=== PATIENT | male | born 1930 | race Caucasian/White ===

== ENCOUNTER 2017-08-05 13:04 | Inpatient (IN) ==
[2017-08-05 14:23] LABS: Basophils % 0.5 % (0.0-0.8); Eosinophils # 0.2 10*3/uL (0.0-0.87); Eosinophils % 2.3 % (0.00-10.9); Hematocrit 41.1 VOL% (42.0-52.0); Hemoglobin 13.8 GM/DL (14.0-18.0); Immature Granulocytes % 0.3 %; Immature Granulocytes Absolute 0.03 #; Lymphocytes # 1.7 10*3/uL (1.4-4.0); Lymphocytes % 18.7 % (21.2-54.2); Mean Corpuscular HGB Conc 33.6 GM/DL (32-36); Mean Corpuscular Hemoglobin 31 PG (27-34); Mean Corpuscular Volume 91.3 FL (87-102); Mean Platelet Volume 10.9 FL (9.6-12.0); Monocytes # 0.7 10*3/uL (0.11-0.8); Monocytes % 7.4 % (1.7-12.7); Neutrophils # 6.2 10*3/uL (1.4-7.4); Neutrophils % 70.8 % (38.7-73.9); Platelet Count 134 T/CUMM (130-400); Red Cell Distribution Width 13.1 % (9.3-17.3); White Blood Count 8.8 T/CUMM (4-12)
[2017-08-05 14:56] LABS: Albumin 3.5 G/DL (3.4-5.0); Bilirubin,Total 0.5 MG/DL (0.2-1.0); Calcium 8.8 MG/DL (8.5-10.1); Osmolality,Calculated 283.4 MOS/KG (273-304); Total Protein 7.2 G/DL (6.4-8.3)
[2017-08-05 16:27] LABS: Apearance,Urine CLEAR (Clear); Bilirubin,Urine Negative (Negative); Blood, Urine Small mg/dL (Negative); Glucose,Urine (UA) Negative (Negative); Ketones,Urine Negative (Negative); Mucus,Urine Occasional /LPF (Occasional); Nitrite,Urine Negative (Negative); Protein,Urine 30 MG/DL; RBC,Urine <1 /HPF (0-4); Urine Color Yellow (Yellow); Urine Specific Gravity 1.009 (1.001-1.035); Urine Urobilinogen < 2.0 EU/DL (0.2-1.0); WBC,Urine <1 /HPF (0-6)
[2017-08-05] MEDS ORDERED: ACETAMINOPHEN 325 MG TABLET PO PRN (18:35)
[2017-08-05] MEDS ORDERED: ONDANSETRON 4 MG/2 ML VIAL IV PRN (18:35)
[2017-08-05] MEDS: DILTIAZEM CD 180 MG CAPSULE PO SCH (20:40)
[2017-08-05] MEDS: DICYCLOMINE 10 MG CAPSULE PO SCH (20:45)
[2017-08-05] MEDS: LACTATED RINGERS 1,000 ML IV SCH (20:45)
[2017-08-05] MEDS: METOPROLOL SUCCINATE XL 100 MG TABLET PO SCH (20:45)
[2017-08-06] MEDS: LACTATED RINGERS 1,000 ML IV SCH (04:34)
[2017-08-06] MEDS ORDERED: CLINDAMYCIN INJ 900 MG in PREMIX 1 EACH IV ONE (06:00)
[2017-08-06] MEDS: DILTIAZEM CD 180 MG CAPSULE PO SCH ×2 (06:19→10:15)
[2017-08-06] MEDS: METOPROLOL SUCCINATE XL 100 MG TABLET PO SCH ×2 (06:20→10:16)
[2017-08-06] MEDS ORDERED: ceFAZolin 1,000 MG VIAL ONE (06:27)
[2017-08-06] MEDS ORDERED: BUPIVACAINE 0.25% 50 ML VIAL ONE (06:27)
[2017-08-06] MEDS ORDERED: LIDOCAINE 1%/EPI INJ 20 ML VIAL ONE (06:27)
[2017-08-06] MEDS ORDERED: LACTATED RINGERS 1,000 ML IV SCH (07:40)
[2017-08-06] MEDS ORDERED: TISSUE ADHESIVE 1 EACH APPLICATOR TOP ONE (08:06)
[2017-08-06] MEDS ORDERED: SEVOFLURANE 1 UNIT/15 MINUTE INH ONE (08:48)
[2017-08-06] MEDS ORDERED: fentaNYL 100 MCG/2 ML VIAL ONE (08:48)
[2017-08-06] MEDS ORDERED: ACETAMINOPHEN 1,000 MG/100 ML VIAL IV ONE (08:49)
[2017-08-06] MEDS ORDERED: ONDANSETRON 4 MG/2 ML VIAL ONE (08:49)
[2017-08-06] MEDS ORDERED: ETOMIDATE 20 MG/10 ML VIAL IV ONE (08:49)
[2017-08-06] MEDS ORDERED: LEFLUNOMIDE 10 MG TABLET PO SCH (09:00)
[2017-08-06] MEDS ORDERED: PANTOPRAZOLE 40 MG TABLET PO SCH (09:00)
[2017-08-06] MEDS ORDERED: TAMSULOSIN 0.4 MG CAPSULE PO SCH (09:00)
[2017-08-06] MEDS ORDERED: NON-FORMULARY MEDICATION (Esomeprazole Magnesium [Nexium] 40 MG) PO SCH (09:00)
[2017-08-06] MEDS ORDERED: ASPIRIN EC 81 MG TABLET PO SCH (09:00)
[2017-08-06] MEDS ORDERED: HYDROmorphone 2 MG/1 ML VIAL IV PRN (09:32)
[2017-08-06] MEDS: DICYCLOMINE 10 MG CAPSULE PO SCH ×3 (10:19→16:37)
[2017-08-06 16:01] VITALS: BP 119/57
== END 2017-08-06 17:07 | disposition home or self-care (01) | DRG 352 ==
LOC: EDBD → EDUNIT# → N.ED 13:04 → N.EDINP 17:13 → N.3E 18:21
PROVIDERS: ADMIT Surgery; ATTEND Surgery

== ENCOUNTER 2019-09-05 05:27 | Inpatient (IN) ==
[2019-09-05] MEDS ORDERED: CLINDAMYCIN INJ 900 MG in PREMIX 1 EACH IV ONE (06:30)
[2019-09-05] MEDS ORDERED: VANCOMYCIN INJ 1,000 MG in SODIUM CHLORIDE 0.9% 250 ML IV ONE (06:30)
[2019-09-05] MEDS ORDERED: DIAZEPAM 5 MG TABLET PO ONE (06:38)
[2019-09-05] MEDS ORDERED: ACETAMINOPHEN 500 MG TABLET PO ONE (06:38)
[2019-09-05] MEDS ORDERED: FAMOTIDINE 20 MG TABLET PO ONE (06:38)
[2019-09-05] MEDS ORDERED: GABAPENTIN 400 MG CAPSULE PO ONE (06:38)
[2019-09-05] MEDS ORDERED: VANCOMYCIN 1,000 MG VIAL ONE (06:40)
[2019-09-05] MEDS ORDERED: CLINDAMYCIN INJ 50 ML IV ONE (06:41)
[2019-09-05] MEDS ORDERED: LACTATED RINGERS 1,000 ML IV SCH (07:00)
[2019-09-05] MEDS ORDERED: TRANEXAMIC ACID 1,000 MG/10 ML VIAL ONE (07:49)
[2019-09-05] MEDS ORDERED: BUPIVACAINE SPINAL 0.75% 2 ML AMP SPINAL ONE (07:49)
[2019-09-05] MEDS ORDERED: EPINEPHrine 1 MG/ML VIAL ONE (07:49)
[2019-09-05] MEDS ORDERED: ROPIVACAINE 0.5% 30 ML VIAL ONE (07:49)
[2019-09-05] MEDS ORDERED: MAGNESIUM HYDROXIDE SUSP 30 ML UDCUP PO PRN (10:10)
[2019-09-05] MEDS ORDERED: BISACODYL 10 MG SUPP RECTAL PRN (10:10)
[2019-09-05] MEDS ORDERED: ONDANSETRON 4 MG/2 ML VIAL IV PRN (10:10)
[2019-09-05] MEDS ORDERED: TEMAZEPAM 7.5 MG CAPSULE PO PRN (10:10)
[2019-09-05] MEDS ORDERED: MORPHINE 4 MG/1 ML VIAL IV PRN ×2 (10:10→10:34)
[2019-09-05] MEDS ORDERED: PROMETHAZINE 25 MG/1 ML VIAL IM PRN (10:10)
[2019-09-05] MEDS ORDERED: diphenhydrAMINE CAP 25 MG CAPSULE PO PRN (10:10)
[2019-09-05] MEDS ORDERED: LACTULOSE 20 GM/30 ML UDCUP PO PRN (10:10)
[2019-09-05] MEDS ORDERED: Adalimumab [Humira] 40 MG SUBCUT SCH (10:15)
[2019-09-05 12:10] LABS: Apearance,Urine CLEAR (Clear); Bacteria,Urine Occasional /HPF (Few); Bilirubin,Urine Negative (Negative); Blood, Urine Negative (Negative); Glucose,Urine (UA) Negative (Negative); Hyaline Casts,Urine 3 /LPF (0-3); Ketones,Urine Negative (Negative); Mucus,Urine Occasional /LPF (Occasional); Nitrite,Urine Negative (Negative); Protein,Urine Negative; RBC,Urine <1 /HPF (0-4); Urine Color Yellow (Yellow); Urine Specific Gravity 1.013 (1.001-1.035); Urine Urobilinogen < 2.0 EU/DL (0.2-1.0); WBC,Urine <1 /HPF (0-6)
[2019-09-05] MEDS ORDERED: MIDAZOLAM 2 MG/2 ML VIAL ONE (12:22)
[2019-09-05] MEDS ORDERED: ePHEDrine 50 MG/ML AMP ONE (12:22)
[2019-09-05] MEDS ORDERED: ONDANSETRON 4 MG/2 ML VIAL ONE (12:22)
[2019-09-05] MEDS ORDERED: LACTATED RINGERS 1,000 ML IV ONE (12:22)
[2019-09-05] MEDS ORDERED: PHENYLEPHRINE 1 MG/10 ML SYRINGE IV ONE (12:22)
[2019-09-05] MEDS ORDERED: PROPOFOL 200 MG/20 ML VIAL IV ONE (12:22)
[2019-09-05] MEDS ORDERED: fentaNYL 100 MCG/2 ML VIAL ONE (12:22)
[2019-09-05] MEDS ORDERED: SODIUM CHLORIDE 0.9% 200 ML IV ONE (12:22)
[2019-09-05] MEDS ORDERED: ALBUMIN 5% 12.5 GM/250 ML VIAL IV ONE (12:38)
[2019-09-05] MEDS ORDERED: ALBUMIN 25% 25 GM in PREMIX 1 EACH IV ONE (13:00)
[2019-09-05] MEDS: CLINDAMYCIN INJ 900 MG in PREMIX 1 EACH IV SCH ×2 (15:14→23:47)
[2019-09-05] MEDS: FONDAPARINUX 2.5 MG/0.5 ML SYRINGE SUBCUT SCH (21:13)
[2019-09-05] MEDS: INSULIN LISPRO 100 UNIT/ML SUBCUT SCH (21:14)
[2019-09-05] MEDS: PANTOPRAZOLE 40 MG TABLET PO SCH (21:16)
[2019-09-05] MEDS: METOPROLOL SUCCINATE XL 100 MG TABLET PO SCH (21:16)
[2019-09-05] MEDS: DOCUSATE SODIUM 100 MG CAPSULE PO SCH (21:16)
[2019-09-06 06:17] LABS: Basophils % 0.4 % (0.0-0.8); Eosinophils # 0.2 10*3/uL (0.0-0.87); Eosinophils % 4.1 % (0.00-10.9); Hematocrit 31.4 VOL% (42.0-52.0); Immature Granulocytes % 0.2 %; Immature Granulocytes Absolute 0.01 #; Lymphocytes # 1.5 10*3/uL (1.4-4.0); Lymphocytes % 27.4 % (21.2-54.2); Mean Corpuscular HGB Conc 31.8 GM/DL (32-36); Mean Corpuscular Volume 92.6 FL (87-102); Mean Platelet Volume 11.2 FL (9.6-12.0); Monocytes % 13.8 % (1.7-12.7); Neutrophils % 54.1 % (38.7-73.9); Red Blood Count 3.39 MC/CUMM (3.8-5.5); Red Cell Distribution Width 13.8 % (9.3-17.3); White Blood Count 5.6 T/CUMM (4-12)
[2019-09-06 06:23] LABS: Platelet Count 84 T/CUMM (130-400)
[2019-09-06 06:40] LABS: Albumin 2.7 G/DL (3.4-5.0); Bilirubin,Total 0.7 MG/DL (0.2-1.0); Calcium 8.1 MG/DL (8.5-10.1); Osmolality,Calculated 279.5 MOS/KG (273-304); Total Protein 5.9 G/DL (6.4-8.3)
[2019-09-06 06:42] LABS: Risk Ratio 2.94; VLDL CHOLESTEROL 20.6 MG/DL
[2019-09-06] MEDS: LEFLUNOMIDE 10 MG TABLET PO SCH (08:01)
[2019-09-06] MEDS: PANTOPRAZOLE 40 MG TABLET PO SCH ×2 (08:02→21:29)
[2019-09-06] MEDS: METOPROLOL SUCCINATE XL 100 MG TABLET PO SCH ×2 (08:02→21:28)
[2019-09-06] MEDS: DILTIAZEM CD 180 MG CAPSULE PO SCH (08:02)
[2019-09-06] MEDS: DOCUSATE SODIUM 100 MG CAPSULE PO SCH ×2 (08:02→21:28)
[2019-09-06] MEDS: TAMSULOSIN 0.4 MG CAPSULE PO SCH (08:02)
[2019-09-06] MEDS: INSULIN LISPRO 100 UNIT/ML SUBCUT SCH ×4 (08:03→21:29)
[2019-09-06 13:22] LABS: Platelet Estimate Decreased
[2019-09-06 13:23] LABS: Anisocytosis 1+; Macrocytosis Slight
[2019-09-06] MEDS: FONDAPARINUX 2.5 MG/0.5 ML SYRINGE SUBCUT SCH (21:29)
[2019-09-07 05:49] LABS: Basophils % 0.5 % (0.0-0.8); Eosinophils # 0.4 10*3/uL (0.0-0.87); Eosinophils % 4.8 % (0.00-10.9); Hemoglobin 10.6 GM/DL (14.0-18.0); Immature Granulocytes % 0.4 %; Immature Granulocytes Absolute 0.03 #; Lymphocytes # 2.2 10*3/uL (1.4-4.0); Lymphocytes % 26.8 % (21.2-54.2); Mean Corpuscular HGB Conc 32.1 GM/DL (32-36); Mean Corpuscular Volume 92.2 FL (87-102); Mean Platelet Volume 11.7 FL (9.6-12.0); Monocytes % 16.4 % (1.7-12.7); Neutrophils % 51.1 % (38.7-73.9); Red Blood Count 3.58 MC/CUMM (3.8-5.5)
[2019-09-07 05:51] LABS: Platelet Count 84 T/CUMM (130-400); White Blood Count 8.1 T/CUMM (4-12)
[2019-09-07 06:02] LABS: Calcium 8.2 MG/DL (8.5-10.1); Osmolality,Calculated 281.4 MOS/KG (273-304)
[2019-09-07 06:22] LABS: Eosinophils 2 % (0-10); Lymphocytes 26 % (20-55); Platelet Estimate Decreased; Segmented Neutrophils 63 % (50-85); Total Cells Counted 100
[2019-09-07 06:23] LABS: Polychromasia Few
[2019-09-07] MEDS ORDERED: hydrALAZINE 20 MG/1 ML VIAL IM PRN (08:55)
[2019-09-07] MEDS: METOPROLOL SUCCINATE XL 100 MG TABLET PO SCH ×2 (09:45→20:55)
[2019-09-07] MEDS: LEFLUNOMIDE 10 MG TABLET PO SCH (09:45)
[2019-09-07] MEDS: DILTIAZEM CD 180 MG CAPSULE PO SCH (09:45)
[2019-09-07] MEDS: PANTOPRAZOLE 40 MG TABLET PO SCH ×2 (09:46→20:55)
[2019-09-07] MEDS: TAMSULOSIN 0.4 MG CAPSULE PO SCH (09:46)
[2019-09-07] MEDS: DOCUSATE SODIUM 100 MG CAPSULE PO SCH ×2 (09:46→20:55)
[2019-09-07] MEDS: POTASSIUM CHLORIDE RIDER 10 MEQ in PREMIX 1 EACH IV SCH ×2 (09:47→11:30)
[2019-09-07] MEDS: INSULIN LISPRO 100 UNIT/ML SUBCUT SCH ×4 (11:30→20:55)
[2019-09-07] MEDS: FONDAPARINUX 2.5 MG/0.5 ML SYRINGE SUBCUT SCH (20:55)
[2019-09-08 05:09] LABS: Basophils # 0.1 10*3/uL (0.0-0.2); Basophils % 0.7 % (0.0-0.8); Eosinophils # 0.6 10*3/uL (0.0-0.87); Eosinophils % 6.8 % (0.00-10.9); Hematocrit 32.8 VOL% (42.0-52.0); Hemoglobin 10.4 GM/DL (14.0-18.0); Immature Granulocytes % 0.5 %; Immature Granulocytes Absolute 0.04 #; Lymphocytes # 2.6 10*3/uL (1.4-4.0); Lymphocytes % 32.3 % (21.2-54.2); Mean Corpuscular HGB Conc 31.7 GM/DL (32-36); Mean Corpuscular Volume 92.9 FL (87-102); Mean Platelet Volume 11.5 FL (9.6-12.0); Neutrophils % 45.7 % (38.7-73.9); Platelet Count 91 T/CUMM (130-400); Red Blood Count 3.53 MC/CUMM (3.8-5.5); Red Cell Distribution Width 14.1 % (9.3-17.3); White Blood Count 8.1 T/CUMM (4-12)
[2019-09-08 05:31] LABS: Calcium 8.1 MG/DL (8.5-10.1); Osmolality,Calculated 277.8 MOS/KG (273-304)
[2019-09-08 05:40] LABS: Atypical Lymphocytes Few; Eosinophils 6 % (0-10); Hypochromasia 1+; Lymphocytes 36 % (20-55); Segmented Neutrophils 46 % (50-85); Total Cells Counted 100
[2019-09-08 05:41] LABS: Microcytosis Slight; Platelet Estimate Decreased
[2019-09-08 07:21] VITALS: BP 138/61
[2019-09-08] MEDS: DOCUSATE SODIUM 100 MG CAPSULE PO SCH (08:11)
[2019-09-08] MEDS: LEFLUNOMIDE 10 MG TABLET PO SCH (08:11)
[2019-09-08] MEDS: DILTIAZEM CD 180 MG CAPSULE PO SCH (08:11)
[2019-09-08] MEDS: METOPROLOL SUCCINATE XL 100 MG TABLET PO SCH (08:11)
[2019-09-08] MEDS: TAMSULOSIN 0.4 MG CAPSULE PO SCH (08:11)
[2019-09-08] MEDS: PANTOPRAZOLE 40 MG TABLET PO SCH (08:11)
[2019-09-08] MEDS: INSULIN LISPRO 100 UNIT/ML SUBCUT SCH (08:36)
== END 2019-09-08 11:00 | disposition swing bed (61) | DRG 470 ==
LOC: N.SDSINP 05:27 → N.3E 10:07
PROVIDERS: ADMIT Orthopaedic Surgery; ATTEND Orthopaedic Surgery

== ENCOUNTER 2020-07-21 08:19 | Inpatient (IN) ==
[2020-07-21] MEDS ORDERED: ONDANSETRON 4 MG/2 ML VIAL ONE (08:40)
[2020-07-21] MEDS ORDERED: HYDROmorphone 2 MG/1 ML VIAL ONE (08:41)
[2020-07-21] MEDS ORDERED: HYDROmorphone 2 MG/1 ML VIAL IV STA ×2 (08:43→10:41)
[2020-07-21] MEDS ORDERED: hydrALAZINE 20 MG/1 ML VIAL ONE (08:43)
[2020-07-21] MEDS ORDERED: ONDANSETRON 4 MG/2 ML VIAL IV STA (08:45)
[2020-07-21] MEDS ORDERED: hydrALAZINE 20 MG/1 ML VIAL IV STA (08:45)
[2020-07-21] MEDS ORDERED: ACETAMINOPHEN 325 MG TABLET PO PRN (09:33)
[2020-07-21] MEDS ORDERED: HYDROmorphone 2 MG/1 ML VIAL IV PRN (09:33)
[2020-07-21 09:34] LABS: Basophils # 0.1 10*3/uL (0.0-0.2); Basophils % 0.6 % (0.0-0.8); Eosinophils # 0.3 10*3/uL (0.0-0.87); Eosinophils % 3.3 % (0.00-10.9); Hemoglobin 11.8 GM/DL (14.0-18.0); Immature Granulocytes % 0.4 %; Immature Granulocytes Absolute 0.03 #; Lymphocytes # 1.2 10*3/uL (1.4-4.0); Lymphocytes % 15.1 % (21.2-54.2); Mean Corpuscular HGB Conc 31.9 GM/DL (32-36); Mean Corpuscular Volume 94.6 FL (87-102); Monocytes % 7.3 % (1.7-12.7); Neutrophils % 73.3 % (38.7-73.9); Platelet Count 122 T/CUMM (130-400); Red Blood Count 3.91 MC/CUMM (3.8-5.5); Red Cell Distribution Width 13.2 % (9.3-17.3)
[2020-07-21 10:01] LABS: Albumin 3.1 G/DL (3.4-5.0); Bilirubin,Total 0.4 MG/DL (0.2-1.0); Calcium 8.7 MG/DL (8.5-10.1); Osmolality,Calculated 282.5 MOS/KG (273-304); Total Protein 7.2 G/DL (6.4-8.3)
[2020-07-21 10:07] LABS: Bacteria,Urine Occasional /HPF (Few); Bilirubin,Urine Negative (Negative); Blood, Urine Small mg/dL (Negative); Glucose,Urine (UA) Negative (Negative); Ketones,Urine Negative (Negative); Mucus,Urine Occasional /LPF (Occasional); Nitrite,Urine Negative (Negative); Protein,Urine 30 MG/DL; RBC,Urine 16 /HPF (0-4); Squamous Epithelial Cell,Urine Occasional /HPF (0-10); Urine Appearance CLEAR (Clear); Urine Color Yellow (Yellow); Urine Specific Gravity 1.012 (1.001-1.035); Urine Urobilinogen < 2.0 EU/DL (0.2-1.0); WBC,Urine <1 /HPF (0-6)
[2020-07-21] MEDS: SODIUM CHLORIDE 0.45% 1,000 ML IV SCH ×2 (10:35→19:40)
[2020-07-21] MEDS ORDERED: INFLUENZA VIRUS VACCINE 0.5 ML SYRINGE IM ONE (11:57)
[2020-07-21] MEDS ORDERED: KETOROLAC 15 MG/1 ML VIAL IV SCH (15:00)
[2020-07-21] MEDS: LIDOCAINE 5% PATCH TRANSDERM SCH (15:44)
[2020-07-21] MEDS: methylPREDNISolone SOD SUC 40 MG/1 ML VIAL IV SCH (15:45)
[2020-07-21] MEDS: HYDROmorphone 2 MG/1 ML VIAL IV PRN (20:48)
[2020-07-21] MEDS: METOPROLOL SUCCINATE XL 100 MG TABLET PO SCH (20:53)
[2020-07-21] MEDS: DOCUSATE SODIUM 100 MG CAPSULE PO SCH (20:53)
[2020-07-21] MEDS ORDERED: ENOXAPARIN 30 MG/0.3 ML SYRINGE SUBCUT SCH (21:00)
[2020-07-21] MEDS: PREGABALIN 25 MG CAPSULE PO SCH (22:14)
[2020-07-22] MEDS: methylPREDNISolone SOD SUC 40 MG/1 ML VIAL IV SCH ×2 (02:34→22:09)
[2020-07-22] MEDS: HYDROmorphone 2 MG/1 ML VIAL IV PRN (05:40)
[2020-07-22 06:50] LABS: Hematocrit 41.6 VOL% (42.0-52.0); Hemoglobin 13.2 GM/DL (14.0-18.0); Immature Granulocytes % 0.4 %; Immature Granulocytes Absolute 0.02 #; Lymphocytes % 17.4 % (21.2-54.2); Mean Corpuscular HGB Conc 31.7 GM/DL (32-36); Mean Corpuscular Volume 91.8 FL (87-102); Mean Platelet Volume 11.6 FL (9.6-12.0); Monocytes % 0.9 % (1.7-12.7); Neutrophils % 81.3 % (38.7-73.9); Platelet Count 124 T/CUMM (130-400); Red Blood Count 4.53 MC/CUMM (3.8-5.5); Red Cell Distribution Width 13.1 % (9.3-17.3); White Blood Count 5.6 T/CUMM (4-12)
[2020-07-22 07:05] LABS: Calcium 8.9 MG/DL (8.5-10.1); Osmolality,Calculated 277.1 MOS/KG (273-304)
[2020-07-22 07:06] LABS: Hypochromasia 1+
[2020-07-22 07:07] LABS: Microcytosis Slight
[2020-07-22] MEDS ORDERED: ADALIMUMAB 40 MG/0.8 ML SUBCUT SCH (08:00)
[2020-07-22] MEDS: POTASSIUM CHLORIDE 10 MEQ TABLET PO SCH (08:44)
[2020-07-22] MEDS: DILTIAZEM CD 180 MG CAPSULE PO SCH (08:44)
[2020-07-22] MEDS: DOCUSATE SODIUM 100 MG CAPSULE PO SCH ×2 (08:44→21:26)
[2020-07-22] MEDS: LEFLUNOMIDE 10 MG TABLET PO SCH (08:44)
[2020-07-22] MEDS: METOPROLOL SUCCINATE XL 100 MG TABLET PO SCH ×2 (08:44→21:26)
[2020-07-22] MEDS: PREGABALIN 25 MG CAPSULE PO SCH ×2 (08:45→21:25)
[2020-07-22] MEDS: TAMSULOSIN 0.4 MG CAPSULE PO SCH (08:45)
[2020-07-22] MEDS: PANTOPRAZOLE 40 MG TABLET PO SCH (08:45)
[2020-07-22] MEDS: LIDOCAINE 5% PATCH TRANSDERM SCH (08:45)
[2020-07-22] MEDS: SODIUM CHLORIDE 0.45% 1,000 ML IV SCH (14:18)
[2020-07-22] MEDS: fentaNYL 12 MCG/HR PATCH TRANSDERM SCH (17:21)
[2020-07-22] MEDS: ENOXAPARIN 40 MG/0.4 ML SYRINGE SUBCUT SCH (21:26)
[2020-07-23] MEDS: SODIUM CHLORIDE 0.45% 1,000 ML IV SCH ×2 (02:57→16:38)
[2020-07-23 06:38] LABS: Basophils % 0.2 % (0.0-0.8); Hematocrit 32.7 VOL% (42.0-52.0); Immature Granulocytes % 0.5 %; Immature Granulocytes Absolute 0.03 #; Lymphocytes # 0.8 10*3/uL (1.4-4.0); Lymphocytes % 13.8 % (21.2-54.2); Mean Corpuscular HGB Conc 32.7 GM/DL (32-36); Mean Corpuscular Volume 92.1 FL (87-102); Mean Platelet Volume 11.6 FL (9.6-12.0); Monocytes % 3.3 % (1.7-12.7); Neutrophils % 82.2 % (38.7-73.9); Platelet Count 107 T/CUMM (130-400); Red Cell Distribution Width 13.2 % (9.3-17.3); White Blood Count 6.1 T/CUMM (4-12)
[2020-07-23 06:39] LABS: Hemoglobin 10.7 GM/DL (14.0-18.0); Red Blood Count 3.55 MC/CUMM (3.8-5.5)
[2020-07-23 06:49] LABS: Osmolality,Calculated 284.8 MOS/KG (273-304)
[2020-07-23] MEDS: methylPREDNISolone SOD SUC 40 MG/1 ML VIAL IV SCH ×2 (09:29→21:30)
[2020-07-23] MEDS: LEFLUNOMIDE 10 MG TABLET PO SCH (09:30)
[2020-07-23] MEDS: PREGABALIN 25 MG CAPSULE PO SCH ×2 (09:31→21:29)
[2020-07-23] MEDS: TAMSULOSIN 0.4 MG CAPSULE PO SCH (09:31)
[2020-07-23] MEDS: DILTIAZEM CD 180 MG CAPSULE PO SCH (09:31)
[2020-07-23] MEDS: DOCUSATE SODIUM 100 MG CAPSULE PO SCH ×2 (09:31→21:28)
[2020-07-23] MEDS: PANTOPRAZOLE 40 MG TABLET PO SCH (09:31)
[2020-07-23] MEDS: POTASSIUM CHLORIDE 10 MEQ TABLET PO SCH (09:31)
[2020-07-23] MEDS: METOPROLOL SUCCINATE XL 100 MG TABLET PO SCH ×2 (09:31→21:37)
[2020-07-23] MEDS: LIDOCAINE 5% PATCH TRANSDERM SCH (09:36)
[2020-07-23] MEDS: LACTULOSE 20 GM/30 ML UDCUP PO SCH ×2 (09:53→21:28)
[2020-07-23] MEDS ORDERED: TUBERCULIN SKIN TEST 0.1 ML SYRINGE INTRADERM ONE (15:53)
[2020-07-23] MEDS: ENOXAPARIN 40 MG/0.4 ML SYRINGE SUBCUT SCH (21:27)
[2020-07-24 05:02] LABS: Hematocrit 35.1 VOL% (42.0-52.0); Hemoglobin 11.1 GM/DL (14.0-18.0); Immature Granulocytes % 0.4 %; Immature Granulocytes Absolute 0.02 #; Lymphocytes # 0.7 10*3/uL (1.4-4.0); Lymphocytes % 12.6 % (21.2-54.2); Mean Corpuscular HGB Conc 31.6 GM/DL (32-36); Mean Corpuscular Volume 93.6 FL (87-102); Mean Platelet Volume 11.3 FL (9.6-12.0); Monocytes % 3.4 % (1.7-12.7); Neutrophils % 83.6 % (38.7-73.9); Platelet Count 114 T/CUMM (130-400); Red Blood Count 3.75 MC/CUMM (3.8-5.5); Red Cell Distribution Width 13.1 % (9.3-17.3); White Blood Count 5.5 T/CUMM (4-12)
[2020-07-24] MEDS: SODIUM CHLORIDE 0.45% 1,000 ML IV SCH (05:05)
[2020-07-24 05:17] LABS: Osmolality,Calculated 285.7 MOS/KG (273-304)
[2020-07-24] MEDS ORDERED: LACTULOSE 20 GM/30 ML UDCUP PO PRN (08:16)
[2020-07-24] MEDS: POTASSIUM CHLORIDE 10 MEQ TABLET PO SCH (08:34)
[2020-07-24] MEDS: TAMSULOSIN 0.4 MG CAPSULE PO SCH (08:34)
[2020-07-24] MEDS: LEFLUNOMIDE 10 MG TABLET PO SCH (08:34)
[2020-07-24] MEDS: METOPROLOL SUCCINATE XL 100 MG TABLET PO SCH ×2 (08:35→20:41)
[2020-07-24] MEDS: DOCUSATE SODIUM 100 MG CAPSULE PO SCH ×2 (08:35→20:41)
[2020-07-24] MEDS: methylPREDNISolone SOD SUC 40 MG/1 ML VIAL IV SCH ×2 (08:35→20:41)
[2020-07-24] MEDS: PANTOPRAZOLE 40 MG TABLET PO SCH (08:35)
[2020-07-24] MEDS: PREGABALIN 25 MG CAPSULE PO SCH ×2 (08:35→20:51)
[2020-07-24] MEDS: DILTIAZEM CD 180 MG CAPSULE PO SCH (08:35)
[2020-07-24] MEDS: LIDOCAINE 5% PATCH TRANSDERM SCH (08:36)
[2020-07-24 19:46] LABS: QuantiFERON-Tb Gold Pl Negative (Negative); TB2 Ag Minus Result 0 IU/mL
[2020-07-24] MEDS: ENOXAPARIN 40 MG/0.4 ML SYRINGE SUBCUT SCH (20:51)
[2020-07-25 06:14] LABS: Hematocrit 36.9 VOL% (42.0-52.0); Immature Granulocytes % 0.3 %; Immature Granulocytes Absolute 0.02 #; Lymphocytes # 0.7 10*3/uL (1.4-4.0); Lymphocytes % 12.2 % (21.2-54.2); Mean Corpuscular HGB Conc 32.5 GM/DL (32-36); Mean Corpuscular Volume 92.3 FL (87-102); Mean Platelet Volume 11.5 FL (9.6-12.0); Monocytes % 3.8 % (1.7-12.7); Neutrophils % 83.7 % (38.7-73.9); Platelet Count 115 T/CUMM (130-400); Red Cell Distribution Width 13.1 % (9.3-17.3)
[2020-07-25 06:38] LABS: Hypochromasia 1+
[2020-07-25 06:39] LABS: Platelet Estimate Decreased
[2020-07-25] MEDS: LEFLUNOMIDE 10 MG TABLET PO SCH (09:38)
[2020-07-25] MEDS: PREGABALIN 25 MG CAPSULE PO SCH (09:39)
[2020-07-25] MEDS: TAMSULOSIN 0.4 MG CAPSULE PO SCH (09:39)
[2020-07-25] MEDS: DILTIAZEM CD 180 MG CAPSULE PO SCH (09:39)
[2020-07-25] MEDS: POTASSIUM CHLORIDE 10 MEQ TABLET PO SCH (09:39)
[2020-07-25] MEDS: METOPROLOL SUCCINATE XL 100 MG TABLET PO SCH (09:40)
[2020-07-25] MEDS: PANTOPRAZOLE 40 MG TABLET PO SCH (09:40)
[2020-07-25] MEDS: fentaNYL 12 MCG/HR PATCH TRANSDERM SCH (09:40)
[2020-07-25] MEDS: DOCUSATE SODIUM 100 MG CAPSULE PO SCH (09:40)
[2020-07-25] MEDS: methylPREDNISolone SOD SUC 40 MG/1 ML VIAL IV SCH (09:41)
[2020-07-25] MEDS: SODIUM CHLORIDE 0.45% 1,000 ML IV SCH ×2 (09:41→09:42)
[2020-07-25] MEDS: LIDOCAINE 5% PATCH TRANSDERM SCH (10:00)
[2020-07-25 11:52] VITALS: BP 151/71
== END 2020-07-25 14:46 | disposition swing bed (61) | DRG 552 ==
LOC: SUPCPDRO → EDUNIT# → EDBD → N.EDINP 08:19 → N.ED 08:19 → N.5E 10:16
PROVIDERS: ADMIT Family Medicine; ATTEND Family Medicine